=== PATIENT | female | born 1990 | race African-American/Black ===

== ENCOUNTER 2016-10-07 18:35 | Inpatient (IN) ==
[2016-10-07 19:56] LABS: Apearance,Urine CLEAR (Clear); Bilirubin,Urine Negative (Negative); Blood, Urine Negative (Negative); Glucose,Urine (UA) Negative (Negative); Ketones,Urine Negative (Negative); Nitrite,Urine Negative (Negative); Protein,Urine Negative; Squamous Epithelial Cell,Urine Occasional /HPF (0-10); Urine Color Straw (Yellow); Urine Specific Gravity 1.004 (1.001-1.035); Urine Urobilinogen < 2.0 EU/DL (0.2-1.0)
[2016-10-07] MEDS ORDERED: hydrALAZINE 20 MG/1 ML VIAL ONE (19:59)
[2016-10-07] MEDS ORDERED: FAMOTIDINE 20 MG/2 ML VIAL IV ONE (20:00)
[2016-10-07] MEDS ORDERED: ceFAZolin 2,000 MG in PREMIX 1 EACH IV ONE (20:00)
[2016-10-07] MEDS ORDERED: CITRIC ACID/SODIUM CITRATE 30 ML UDCUP PO ONE (20:00)
[2016-10-07] MEDS ORDERED: LABETALOL 100 MG/20 ML VIAL IV PRN (20:06)
[2016-10-07] MEDS ORDERED: OXYTOCIN/LR 20 UNIT/1,000 ML BAG IV ONE ×2 (20:15→21:38)
[2016-10-07] MEDS ORDERED: LABETALOL 20 MG/4 ML SYRINGE IV PRN (20:15)
--- NOTE | 2016-10-07 20:17 | OB/GYN History & Physical ---
History of Present Illness Chief complaint: at 38 weeks uncontrolled hypertension remote from delivery History of present illness: Ms. Armstrong is a 26 year old female Morbidly obese female at 38 weeks estimated gestational age who came into the hospital with blood pressures of 200/100+ with no regular uterine contractions and remote from delivery with a closed cervix. Risks benefits alternatives explained patient in detail and informed us is obtained for primary Home Medications Medication Instructions Recorded Confirmed Type Nitrofurantoin Macro/Power 100 mg PO BID #20 capsule 05/03/16 09/18/16 Rx [Macrobid] Pnv No.95/Ferrous Fum/Folic AC 1 each PO DAILY 05/03/16 09/18/16 History [ Tablet] Labetalol Tab [Trandate Tab] 100 mg PO BID 09/18/16 09/18/16 History Allergies Allergy/AdvReac Type Severity Reaction Status Date / Time No Known Allergies Allergy Verified 09/18/16 13:03 12 point system: reviewed and no additional remarkable complaints except as stated Medical,Surgical,& Family Hx - Medical History Respiratory: History of: Asthma - Social History 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 - Constitutional General appearance: morbidly obese - Head Head exam: Present: normal inspection, normocephalic, atraumatic - Respiratory Respiratory exam: Present: clear to auscultation bilaterally - Breast Breasts: as per HPI Menstruation: as per HPI - Cardiovascular Cardiovascular exam: Present: regular rate and rhythm - GI/Abdominal GI/Abdominal exam: Present: normal bowel sounds - Extremities Exam Extremities exam: Present: normal inspection, normal capillary refill - Back Exam Back exam: Present: normal inspection - Neurological Exam Neurological exam: Present: alert, oriented X3 - Psychiatric Psychiatric exam: Present: normal affect, normal mood - Skin Skin exam: Present: normal color, warm Assessment and Plan (1) with 38 completed weeks gestation Status: Acute Current Visit: Yes (2) Severe preeclampsia Status: Acute Current Visit: Yes (3) Remote from delivery Status: Acute Current Visit: Yes (4) Morbid obesity Status: Acute Current Visit: Yes
[2016-10-07] MEDS: LACTATED RINGERS 1,000 ML IV SCH (20:25)
[2016-10-07] MEDS ORDERED: GLYCOPYRROLATE 0.4 MG/2 ML VIAL ONE (20:25)
[2016-10-07] MEDS ORDERED: ONDANSETRON 4 MG/2 ML VIAL ONE (20:25)
[2016-10-07] MEDS ORDERED: PHENYLEPHRINE 1 MG/10 ML SYRINGE IV ONE (20:25)
[2016-10-07 20:43] LABS: Basophils % 0.2 % (0.0-0.8); Eosinophils # 0.1 10*3/uL (0.0-0.87); Eosinophils % 0.6 % (0.00-10.9); Hematocrit 37.7 VOL% (35.7-47.0); Hemoglobin 12.1 GM/DL (12.0-16.0); Immature Granulocytes % 0.6 %; Immature Granulocytes Absolute 0.07 #; Lymphocytes # 4.7 10*3/uL (1.4-4.0); Lymphocytes % 40.4 % (21.3-54.2); Mean Corpuscular HGB Conc 32.1 GM/DL (32-36); Mean Corpuscular Hemoglobin 28 PG (27-34); Mean Corpuscular Volume 85.9 FL (87-102); Mean Platelet Volume 10.7 FL (9.6-12.0); Monocytes # 0.7 10*3/uL (0.11-0.8); Monocytes % 5.6 % (1.7-12.7); Neutrophils # 6.2 10*3/uL (1.4-7.4); Neutrophils % 52.6 % (38.7-73.9); Platelet Count 213 T/CUMM (130-400); Red Blood Count 4.39 MC/CUMM (3.8-5.5); Red Cell Distribution Width 15.2 % (9.3-17.3); White Blood Count 11.7 T/CUMM (4-12)
[2016-10-07] MEDS ORDERED: hydrALAZINE 20 MG/1 ML VIAL IV ONE (20:50)
[2016-10-07 21:05] LABS: Apearance,Urine CLEAR (Clear); Bilirubin,Urine Negative (Negative); Blood, Urine Negative (Negative); Glucose,Urine (UA) Negative (Negative); Ketones,Urine Negative (Negative); Nitrite,Urine Negative (Negative); Protein,Urine Negative; RBC,Urine <1 /HPF (0-4); Squamous Epithelial Cell,Urine Occasional /HPF (0-10); Urine Color Straw (Yellow); Urine Specific Gravity 1.005 (1.001-1.035); Urine Urobilinogen < 2.0 EU/DL (0.2-1.0); WBC,Urine <1 /HPF (0-6)
[2016-10-07] MEDS ORDERED: HYDROmorphone 2 MG/1 ML VIAL IV PRN (21:13)
[2016-10-07] MEDS ORDERED: ONDANSETRON 4 MG/2 ML VIAL IV PRN ×2 (21:13→21:38)
[2016-10-07] MEDS ORDERED: hydrOXYzine HCL 25 MG/1 ML VIAL IM PRN (21:13)
[2016-10-07] MEDS ORDERED: diphenhydrAMINE 50 MG/1 ML VIAL IV PRN (21:13)
[2016-10-07] MEDS ORDERED: LACTATED RINGERS 1,000 ML IV SCH (21:30)
[2016-10-07] MEDS ORDERED: SODIUM CHLORIDE 0.9% 1,000 ML IV SCH (21:30)
[2016-10-07] MEDS ORDERED: IBUPROFEN 800 MG TABLET PO PRN (21:38)
[2016-10-07] MEDS ORDERED: LANOLIN 50% CREAM 0.3 OZ TUBE TOP PRN (21:38)
[2016-10-07] MEDS ORDERED: oxyCODONE/ACETAMINOPHEN 5-325 MG TABLET PO PRN (21:38)
[2016-10-07] MEDS ORDERED: BENZOCAINE 20%/MENTHOL 0.5% SPRAY 56 GM CAN TOP PRN (21:38)
[2016-10-07] MEDS ORDERED: MEASLES/MUMPS/RUBELLA VACCINE 0.5 ML VIAL SUBCUT ONE (21:38)
[2016-10-07] MEDS ORDERED: ACETAMINOPHEN 325 MG TABLET PO PRN (21:38)
[2016-10-07] MEDS ORDERED: RHO(D) IMMUNE GLOBULIN 300 MCG SYRINGE IM ONE (21:38)
[2016-10-07] MEDS ORDERED: BISACODYL 10 MG SUPP RECTAL PRN (21:38)
[2016-10-07] MEDS ORDERED: WITCH HAZEL PADS 100/JAR TOP PRN (21:38)
[2016-10-07] MEDS ORDERED: DIPH/TET/ACEL PERT BOOSTER VACCINE 0.5 ML VIAL IM ONE (21:38)
[2016-10-07] MEDS ORDERED: HYDROCORTISONE 2.5% RECTAL CREAM 30 GM TUBE TOP PRN (21:38)
--- NOTE | 2016-10-07 21:38 | Operative Note ---
Date of procedure: 10/07/16 Pre-op diagnosis: 38 weeks severe preeclampsia remote from delivery Post-op diagnosis: same Procedure: This is Dr. Roa dictating operative note: Preoperative diagnosis intrauterine intrauterine at 38 weeks 2. Severe preeclampsia 3. Remote from delivery 4. Morbid obesity Postoperative diagnosis same Procedure primary low transverse section Surgeon Dr. Roa Anesthesia spinal Findings liveborn female infant 7 pounds 14 ounces Complications none Estimated blood loss [400] mL Disposition patient to recovery room in [stable] condition. Infant to nursery in [stable] condition Operative description: After the risks benefits and alternatives were explained to the patient in detail and informed consent was obtained, the patient was taken to the operating room where she was placed in the supine position. After achieving appropriate anesthesia the abdomen was prepped and draped in the usual sterile fashion. A Triana catheter was placed without difficulty. After the appropriate time out and after adequate anesthesia was ascertained a Pfannenstiel skin incision was made and carried down through the subcutaneous tissue down to the fascia. The fascia was nicked in the midportion and undermined and incised both laterally and cephalad using sharp dissection with the curved Delgadillo scissors. 2 Brisa clamps were used to elevate the rectus fascia superiorly which was bluntly and sharply dissected away from the rectus muscle below. This was repeated inferiorly. The rectus muscles were then bluntly in the midline the peritoneum identified grasped with 2 curved hemostats and entered sharply using the curved Metzenbaum scissors. A bladder blade was then placed in the pelvis and a bladder flap was created off the lower uterine segment using sharp dissection with the Metzenbaum scissors. The bladder blade was then repositioned. A transverse incision was made across the lower uterine segment down to the amnion. Entry into the amnion revealed [ clear] amniotic fluid. The uterine incision was then extended laterally using bilateral finger fractionation. Upon palpation the presenting part was [vertex ] which was gently elevated out of the pelvis and delivered onto the abdominal wall using appropriate fundal pressure. The 's nose and oropharynx were bulb and DeLee suctioned and the had spontaneous cry delivery. The cord was doubly clamped and cut and the was handed over to the team for care. Cord blood was obtained. The placenta was delivered manually and IV Pitocin antibiotics and Zofran were begun. The uterus was then exteriorized and placed in a wet laparotomy sponge. 2 fingers wrapped around a wet laparotomy sponge were used to remove all residual membranes from the uterine cavity. The uterus was then closed in 2 layers. The first layer of myometrium was closed with #1 Monocryl suture in an inner locking fashion beginning at both angles and overlapping slightly in the midline. The second layer of myometrium was closed with #1 Monocryl suture in a running imbricating stitch beginning at the right angle and continuing the length of the uterine incision. Hemostasis was noted to be excellent. The posterior cul-de-sac was then irrigated and cleansed with a wet laparotomy sponge and the uterus was placed back in the abdominal cavity. Both pericolic gutters were then irrigated and cleansed with a wet lap sponge. The uterine incision was then re-irrigated and again noted to be hemostatic. All counts were noted to be correct. The subcutaneous tissue was then closed using 3-0 Vicryl suture in a running fashion. The subfascial area was made hemostatic using electrocautery and closed with #1 PDS suture in a running fashion beginning at both angles and overlapping slightly in the midline. The subcutaneous tissue was irrigated and made hemostatic using electrocautery and closed with 2-0 Vicryl suture in a running fashion and the skin was closed with wide skin myah and a sterile pressure bandage was applied to the wound. All sponge needle and instrument counts were correct -3 at the end of the procedure. The patient's urine was [ clear] both at the beginning in the end of the procedure. The patient was taken to the recovery room in stable condition Anesthesia: spinal Surgeon / Physician: Maco Roa Estimated blood loss: other (400) Specimens: none sent Condition: stable Disposition: floor Results - Labs CBC & BMP: 10/07/16 20:41 Discharge Plan - Discharge Medications No Action Nitrofurantoin Macro/[place] [Macrobid] 100 mg PO BID #20 capsule Pnv No.95/Ferrous Fum/Folic AC [ Tablet] 1 each PO DAILY Labetalol Tab [Trandate Tab] 100 mg PO BID - Follow Up or Referral - Forms/Instructions
[2016-10-07] MEDS ORDERED: ePHEDrine 50 MG/ML AMP ONE (21:54)
[2016-10-07] MEDS ORDERED: fentaNYL 100 MCG/2 ML VIAL ONE (21:54)
[2016-10-07] MEDS ORDERED: MORPHINE 10 MG/10 ML VIAL ONE (21:55)
[2016-10-07] MEDS ORDERED: LABETALOL 200 MG TABLET PO SCH (22:00)
[2016-10-07 23:42] LABS: PT Patient Result 10.1 SECS; Partial Thromboplastin Time 29.6 SECS (0-40)
[2016-10-07 23:52] LABS: Alanine Aminotransferase 30 U/L (13-56); Albumin 2.6 G/DL (3.4-5.0); Alkaline Phosphatase 210 U/L (45-117); Aspartate Amino Transferase 25 U/L (0-37); Bilirubin,Total < 0.39 MG/DL (0.2-1.0); Blood Urea Nitrogen 3 MG/DL (7-18); Calcium 8.7 MG/DL (8.5-10.1); Glucose 89 MG/DL (74-106); Osmolality,Calculated 274.4 MOS/KG (273-304); Potassium 3.4 MMOL/L (3.5-5.1); Sodium 140 MMOL/L (136-145); Total Protein 5.7 G/DL (6.4-8.3)
[2016-10-08] MEDS ORDERED: MAGNESIUM SULF RIDER 100 ML IV ONE (00:27)
[2016-10-08] MEDS ORDERED: MAGNESIUM SULF DRIP 40 GM/1,000 ML ML IV SCH (00:30)
[2016-10-08] MEDS: LACTATED RINGERS 1,000 ML IV SCH ×2 (06:08→09:20)
--- NOTE | 2016-10-08 06:23 | Anesthesia Post-Op ---
Anesthesia Post OP - Post Ansesthetic Evaluation Patient seen in post op: Yes Resp: within normal limits CV: within normal limits Mental: within normal limits Temp: within normal limits Ebii-Rb-Joralstqt: within normal limits Nausea and Vomiting: within normal limits Pain: within normal limits
--- NOTE | 2016-10-08 07:07 | OB/GYN Progress Note ---
Assessment and Plan (1) with 38 completed weeks gestation Status: Acute Current Visit: Yes (2) Severe preeclampsia Status: Acute Current Visit: Yes (3) Remote from delivery Status: Acute Current Visit: Yes (4) Morbid obesity Status: Acute Current Visit: Yes CONCRETE SMOOTHER - PN: Subj Interval history: Patient is doing well. She is tolerating her diet. She is alert and oriented -3 Cardiovascular regular rate and rhythm Lungs clear to auscultation Abdomen soft with appropriate tenderness and bowel sounds are present and her incision is dry no bleeding Is good refill HEENT shows pink conjunctiva [place] assessment 1 day of surgery doing well Plan continue present management Continue p.o. labetalol 200 mg twice daily Begin Lovenox DVT prophylaxis due to increased BMI Exam CONCRETE SMOOTHER - Constitutional Vitals: Vital Signs Temp Pulse Resp BP Pulse Ox 10/08/16 06:00 18 10/08/16 04:00 18 10/07/16 20:00 97.4 F L 90 20 169/78 100 Results - Labs CBC & BMP: 10/07/16 20:41 10/07/16 23:05
[2016-10-08 08:11] LABS: Basophils % 0.2 % (0.0-0.8); Eosinophils % 0.2 % (0.00-10.9); Hematocrit 34.5 VOL% (35.7-47.0); Hemoglobin 11.7 GM/DL (12.0-16.0); Immature Granulocytes % 0.3 %; Immature Granulocytes Absolute 0.04 #; Lymphocytes # 2.5 10*3/uL (1.4-4.0); Lymphocytes % 20.5 % (21.3-54.2); Mean Corpuscular HGB Conc 33.9 GM/DL (32-36); Mean Corpuscular Hemoglobin 29 PG (27-34); Mean Corpuscular Volume 84.1 FL (87-102); Mean Platelet Volume 10.9 FL (9.6-12.0); Monocytes # 0.6 10*3/uL (0.11-0.8); Monocytes % 5.3 % (1.7-12.7); Neutrophils # 8.9 10*3/uL (1.4-7.4); Neutrophils % 73.5 % (38.7-73.9); Platelet Count 223 T/CUMM (130-400); Red Cell Distribution Width 15.3 % (9.3-17.3); White Blood Count 12.2 T/CUMM (4-12)
[2016-10-08] MEDS ORDERED: [UNRECOGNIZED DRUG - REMARK] PO SCH (12:29)
[2016-10-08] MEDS ORDERED: diphenhydrAMINE CAP 25 MG CAPSULE PO PRN (14:11)
[2016-10-08] MEDS ORDERED: diphenhydrAMINE CAP 25 MG CAPSULE ONE (14:14)
[2016-10-08] MEDS ORDERED: diphenhydrAMINE 50 MG/1 ML VIAL IV PRN (14:21)
[2016-10-08] MEDS: oxyCODONE/ACETAMINOPHEN 5-325 MG TABLET PO PRN (18:00)
[2016-10-08] MEDS: ENOXAPARIN 30 MG/0.3 ML SYRINGE SUBCUT SCH (18:00)
[2016-10-08] MEDS: LABETALOL 300 MG TABLET PO SCH (20:43)
[2016-10-08] MEDS: DOCUSATE SODIUM 100 MG CAPSULE PO SCH (20:43)
[2016-10-09] MEDS: oxyCODONE/ACETAMINOPHEN 5-325 MG TABLET PO PRN (03:51)
[2016-10-09] MEDS: ENOXAPARIN 30 MG/0.3 ML SYRINGE SUBCUT SCH (06:00)
--- NOTE | 2016-10-09 07:33 | Discharge Summary ---
Hospital Course - Hospital Course Hospital Course: Postoperatively the patient did well. She had quick return of bowel bladder function. She remained afebrile throughout her hospitalization. Her blood pressure normalized with labetalol 300 mg 2 times daily. She was discharged on bleeding infection precautions are to maintain pelvic rest limited activity and instructed to return office the following week for staple removal and follow-up on her blood pressure Diagnosis - Discharge Diagnosis (1) with 38 completed weeks gestation Status: Acute (2) Severe preeclampsia Status: Acute (3) Remote from delivery Status: Acute (4) Morbid obesity Status: Acute Discharge Plan - Discharge Data Disposition: Disch To Home/Self Care Discharge Diet: regular diet Activity: increase activity as tolerated, no lifting, other (Pelvic rest) Hygiene: may shower Weight Bearing at Discharge: full weight bearing Driving: not until seen by doctor Contact your physician if you experience:: fever over 101, Difficulty voiding, Redness or swelling, Nausea/Vomiting, Shortness of breath, Bleeding, pain uncontrolled by pain medications - Discharge Medications New Labetalol Tab [Trandate Tab] 300 mg PO BID #60 tablet oxyCODONE/ACETAMINOPHEN 5-325 [Percocet 5-325] 1 tablet PO Q6H PRN #20 tablet PRN Reason: Pain Severe (8-10) Discontinued Pnv No.95/Ferrous Fum/Folic AC [ Tablet] 1 each PO DAILY - Follow Up or Referral Follow Up: Maco Roa MD [Physician] - 1 Week - Forms/Instructions Exam - Constitutional Vitals: Period Temp Pulse Resp BP Sys/[place] Pulse Ox Last 24 Hr 97.2 F-98.2 F 82-98 16-24 126-159/57-92 92-99 Discharge Results Labs on day of discharge: Labs from last 24 hours 10/08/16 10/08/16 07:56 07:56 WBC 12.2 H RBC 4.10 Hgb 11.7 L Hct 34.5 L MCV 84.1 L MCH 29 MCHC 33.9 RDW 15.3 Plt Count 223 MPV 10.9 Neut % (Auto) 73.5 Lymph % (Auto) 20.5 L [place] % (Auto) 5.3 Eos % (Auto) 0.2 Baso % (Auto) 0.2 Neut # (Auto) 8.9 H Lymph # (Auto) 2.5 [place] # (Auto) 0.6 Eos # (Auto) 0.0 Baso # (Auto) 0.0 Immature Gran % 0.3 Nucleated RBC % 0.0 Immature Gran # 0.04 Nucleated RBCs # 0.00 Magnesium 3.2 H DS: Provider Date of admission: 10/07/16 20:00 Primary care physician: . No PCP Attending physician on admission: Sherrell Gifford Consults: 10/07/16 20:00 Consult to Anesthesiology [CONS] Routine Consulting Provider: Reason for Anesthesiology: Pre-op Clearance 10/07/16 21:41 Consult to Excel Specialist [CONS] Routine Consult Excel Specialist: Breast Feeding 10/08/16 02:27 Consult to Dietitian [CONS] Routine Reason for Dietitian: Dietary Consult Discharging clinician: Sherrell Gifford Expected date of discharge: 10/09/16
[2016-10-09] MEDS: DOCUSATE SODIUM 100 MG CAPSULE PO SCH (08:24)
[2016-10-09] MEDS ORDERED: MULTIVITAMIN (PRENATAL) TABLET PO SCH (09:00)
[2016-10-09] MEDS: LABETALOL 300 MG TABLET PO SCH (09:14)
[2016-10-09 09:16] VITALS: BP 150/75
== END 2016-10-09 11:05 | disposition home or self-care (01) | DRG 765 ==
LOC: N.LDOUT 18:35 → N.LD 19:23 → N.OB 10-08 12:33
PROVIDERS: ADMIT Specialist; ATTEND Specialist
PROC: LDCSECT (ICD-10-PCS; 2016-10-07 20:30)